=== PATIENT | male | born 1965 | race Caucasian/White ===

== ENCOUNTER 2017-03-04 08:28 | Day surgery (SDC) | payer MEDICAID ==
[~2017-03-04] VITALS: Ht 188 cm; Wt 86.2 kg
--- NOTE | ~2017-03-04 | OP ---
PATIENT NAME: NASREEN MCNAMARA MEDICAL RECORD: [id number] :67 LOCATION:.[facility] ADMISSION DATE: SURGEON: YOLANDA BANKS MD DATE OF OPERATION: 03/04/2017 SURGEON: Yolanda Banks MD PREOPERATIVE DIAGNOSIS: Bleeding hemorrhoids. POSTOPERATIVE DIAGNOSIS: Bleeding hemorrhoids. PROCEDURE PERFORMED: 1. Rectal examination under anesthesia. 2. Hemorrhoidectomy with rubber band ligation. ANESTHESIA: General. COMPLICATIONS: None. SPECIMENS: None. Case was contaminated. OPERATIVE COURSE: After consent was obtained, the patient was taken to the operating room and placed in the supine position on the operative table. Next, general anesthesia was given via endotracheal intubation after a timeout was performed to confirm the correct patient and procedure. The patient was then placed in the [facility] stirru. The perineum was prepped and draped in typical sterile fashion. A 30 cc of local anesthetic were injected around the rectum for a perineal block. Digital rectal exam was performed. The rectum was serially dilated using the [employer] retractors. Internal hemorrhoids were noted. Two rubber bands were placed on 2 separate internal hemorrhoid columns. The patient tolerated the procedure well. The rectum was then packed with Gelfoam and Americ[place]. At the end of case, all needle and instrument counts were correct. No complications occurred. The patient was extubated and transferred to the PACU in stable condition. 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
[~2017-03-04 08:28] MED LIST: OMEPRAZOLE20 M1 PO
[2017-03-04 09:13] VITALS: BP 113/86; Ht 188 cm; Wt 86.2 kg
[2017-03-04] MEDS ORDERED: HYDROCODON-ACE1 EAC7 PO (11:28)
[2017-03-04] MEDS ORDERED: MIRALAX17 GM PO (11:29)
== END 2017-03-04 13:32 | disposition home or self-care (01) ==
LOC: D.OPS 08:28
DX: K64.8 Other hemorrhoids (principal); K21.9 Gastro-esophageal reflux disease without esophagitis; Z01.812 Encounter for preprocedural laboratory examination

== ENCOUNTER 2017-03-19 10:17 | Emergency (ER) | payer MEDICAID ==
[2017-03-04 09:13] VITALS: BMI 24.4
[~2017-03-19 10:17] MED LIST changes: +HYDROCODON-ACE1 EAC7 PO; +MIRALAX17 GM PO
[2017-03-19 10:45] LABS: BASOPHILS 0.1 % (0-2); EOSINOPHILS 0.3 % (0-7); HEMATOCRIT 44.4 % (42.0-54.0); HEMOGLOBIN 15.3 g/dL (13.5-17.5); IMMATURE GRANULOCYTES 0.4 % (0-5); LYMPHOCYTES 16.2 % (15-50); MCH 30.4 pg (26.0-34.0); MCHC 34.5 g/dL (31.0-37.0); MCV 88.3 fL (80.0-100.0); MEAN PLATELET VOLUME 9.3 fL (7.4-10.4); MONOCYTES 5.3 % (2-11); NEUTROPHILS 77.7 % (40-80); PLATELET COUNT 271 10x3/uL (130-400); RBC 5.03 10x6/uL (4.20-6.10); RDW 12.9 % (11.5-14.5); WBC 10.9 10x3/uL (4.8-10.8)
[2017-03-19 11:03] LABS: ALKALINE PHOSPHATASE 92 U/L (46-116); ALT (SGPT) 25 U/L (10-68); AMYLASE - SERUM 70 U/L (25-115); BILIRUBIN - TOTAL 0.37 mg/dL (0.2-1.3); CALC OSMOLALITY 280 mosm/kg (275-300); CALCIUM 9.3 mg/dL (8.5-10.1); CARBON DIOXIDE 30.1 mmol/L (21.0-32.0); CHLORIDE - SERUM 98 mmol/L (98-107); GLUCOSE 114 mg/dL (74-106); LIPASE 109 U/L (73-393); POTASSIUM - SERUM 3.2 mmol/L (3.5-5.1); PROTEIN - SERUM 7.8 g/dL (6.4-8.2); SODIUM 139 mmol/L (136-145); UREA NITROGEN 17 mg/dL (7-18); eGFR NON AFRICAN AMERICAN 84 mL/min (90-120)
== END 2017-03-19 13:10 | disposition home or self-care (01) ==
LOC: D.ER 10:17
PROVIDERS: Emergency Medicine
DX: K29.00 Acute gastritis without bleeding (principal); R11.10 Vomiting, unspecified